=== PATIENT | female | born 1965 | race Two or more races ===

== ENCOUNTER 2024-11-29 08:05 | Day surgery (SDC) | payer MEDICAID, SELFPAY ==
[2024-11-28 15:47] VITALS: BMI 41.7
[2024-11-29] VITALS (13 sets, daily range): BP systolic 121–171; BP diastolic 77–103; PULSE 74–96; RESP 15–22; TEMP 36.3–36.7; O2SAT 93–99; BMI 39.6
[2024-11-29] MEDS: BENZOCAINE 20% (Hurricaine) SPRAY 1 DOSE TOP (10:21)
[2024-11-29] MEDS: MIDAZOLAM INJ 1 MG/ML VIAL 2 ML (ASD USE ONLY) 2 MG IVP (10:22)
[2024-11-29] MEDS: RINGERS LACTATED 500 ML 500 ML 20 ML IV (10:22)
[2024-11-29] MEDS: fentaNYL CIT INJ 50 mCg/ML AMP 2ML (ASD USE ONLY) IVP (10:24)
[2024-11-29] MEDS: PANTOPRAZOLE/NS 80MG IV PREMIX 80 MG/100 ML BAG 400 MG IV (10:45)
--- NOTE | 2024-11-29 11:50 | SUR.PHASEII ---
1033 PATIENT INTO RECOVERY WITH NO ACUTE DISTRESS NOTED, V/S STABLE, NO COMPLAINTS OF PAIN OR NAUSEA AT THIS TIME. PATIENT REPOSITIONS SELF FOR COMFORT, REPORT RECEIVED FROM KARL ORTEGA. BLOOD SUGAR IS 68. PATIENT IS AWAKE AND TALKING WITH NO DIFFICULTY. PATIENT DENIED HYPOGLYCEMIC SYMPTOMS. APPLE JUICE GIVEN. PROTONIX IV INFUSING PER 'S ORDER. 1050 PATIENT RESTING COMFORTABLY AND CONTINUES TO DRINK APPLE JUICE. 1110 PATIENT REMAINS STABLE HOWEVER BLOOD SUGAR IS STILL 68. 7UP AND ROBBIE CRACKERS GIVEN. PATIENT IS DRINKING/EATING WITH NO DIFFICULTY. PATIENT CONTINUES TO DENY HYPOGLYCEMIC SYMPTOMS, NAUSEA, AND PAIN. 1130 PATIENT AMBULATES TO BATHROOM WITH NO DIFFICULTY TO GET DRESSED. PROTONIX INFUSION IS COMPLETE. 1145 PATIENT'S V/S REMAIN STABLE, NO COMPLAINTS OF PAIN OR NAUSEA AT THIS TIME. BLOOD SUGAR RECHECK IS 179. IV IS REMOVED. D/C INSTRUCTIONS GIVEN TO PATIENT AND PATIENT'S FRIEND/EX- REMIGIO. 1150 REMIGIO(PATIENT'S FRIEND/EX-) VERBALIZES UNDERSTANDING OF D/C INSTRUCTIONS. PATIENT IS D/C HOME.
== END 2024-11-29 11:50 | disposition home or self-care (01) ==
PROVIDERS: Referring Provider Internal Medicine Gastroenterology; Visit Provider Internal Medicine Gastroenterology
PROC: (CPT 43239; principal; 2024-11-29 08:15)
DX: K31.7 Polyp of stomach and duodenum (principal); K44.9 Diaphragmatic hernia without obstruction or gangrene; K31.89 Other diseases of stomach and duodenum; I10 Essential (primary) hypertension
CPT/HCPCS: 43239; 43251; A4217; A4649; J1200; J2250; J3010; J3490; J7120; A9270